=== PATIENT | male | born 2000 | race Caucasian/White ===

== ENCOUNTER 2025-03-29 12:31 | Outpatient (CLI) | payer SELFPAY ==
[2025-03-29 12:40] VITALS: BMI 28.2
--- NOTE | 2025-03-29 12:43 | ECG_ITS ---
[employer] Test Date: 2025-03-29 Pat Name: Kvng Echeverria Department: Room: Gender: Male Operation Specialist: : 2000 Requested By: Nunu Cardona Order Number: [id number] Ashely MD: RACHELLE CRAMER Interpretive Statements Lung unchanged pre/post procedure; Intraprocedure shortess of breath; Symptoms resoled by discharge EXERCISE DATA: The patient was exercised by Josemanuel protocol. Baseline heart rate was 74 beats per minute. Baseline blood pressure was 140/73 millimeters of mercury. Target heart rate was 194 beats per minute. Maximum heart rate achieved was 171 which was 88% of the target heart rate. Maximum blood pressure was 190/85 millimeters of mercury. Total exercise time was 10 minutes 1 second maximum METs achieved was 13.5, maximum VO2 was 47.3 The reason for ending the test was maximum effort achieved the patient complained of shortness of breath during the stress test, which then resolved at the end of the test. ELECTROCARDIOGRAM: BASELINE: Showed sinus rhythm, normal axis, no significant ST-T changes at the baseline noted. EXERCISE: At the peak exercise level, No significant ST-T changes suggestive of ischemia noted. RECOVERY: During the recovery period, heart rate dropped appropriately. No significant ST-T changes in the recovery suggestive of ischemia noted. CONCLUSION: 1. Exercise capacity good 2. Heart rate response was appropriate 3. Blood pressure response was hypertensive 4. Symptoms not suggestive of ischemia. 5. Electrocardiogram portion of the stress test was not suggestive of ischemia. 6. Nuclear scan will be documented separately. Electronically Signed On 04-22-2025 20:09:43 CDT by RACHELLE CRAMER [email or web address]
[2025-03-29 13:29] VITALS: BP 156/70; PULSE 95
== END 2025-03-29 12:32 | disposition home or self-care (01) ==
PROVIDERS: PCP Nurse Practitioner Family; Visit Provider Nurse Practitioner Family
DX: R07.9 Chest pain, unspecified (principal); R93.1 Abnormal findings on diagnostic imaging of heart and coronary circulation
CPT/HCPCS: 93017